=== PATIENT | female | born 1950 | race Two or more races ===

== ENCOUNTER → 2016-12-17 | Outpatient (CLI) | payer BC, OTHER ==
[2016-12-17 12:22] LABS: ABSOLUTE EOSINOPHILS # (AUTO) 0.1 10^3/uL (0.0-0.6); ABSOLUTE LYMPHOCYTES (AUTO) 2.3 10^3/uL (0.5-4.7); ABSOLUTE MONOCYTES (AUTO) 0.6 10^3/uL (0.1-1.4); ABSOLUTE NEUT (AUTO) 2.9 10^3/uL (1.7-8.2); BASOPHILS % (AUTO) 0.6 % (0-2); EOSINOPHILS % (AUTO) 2.4 % (0-6); HEMATOCRIT 38.3 % (36.0-47.0); HGB HCT DIFFERENCE 0.7; LYMPHOCYTES % (AUTO) 38.9 % (13-45); MEAN CORPUSCULAR HEMOGLOBIN 28.2 pg (27.0-33.4); MEAN CORPUSCULAR VOLUME 83 fl (80-97); MONOCYTES % (AUTO) 9.9 % (3-13); RED BLOOD COUNT 4.61 10^6/uL (3.72-5.28); RED CELL DISTRIBUTION WIDTH 14.5 % (11.5-14.0); SEGMENTED NEUTROPHILS % (AUTO) 48.2 % (42-78)
[2016-12-17 12:45] LABS: BLOOD UREA NITROGEN 11 mg/dL (7-20); CALCIUM 9.6 mg/dL (8.4-10.2); CREATININE RESULT 0.52 mg/dL (0.52-1.25); GLUCOSE 97 mg/dL (75-110)
[2016-12-17 12:46] LABS: ANION GAP 13 (5-19); CARBON DIOXIDE 26 mmol/L (22-30); CHLORIDE 104 mmol/L (98-107); POTASSIUM 4.8 mmol/L (3.6-5.0); SODIUM 143.4 mmol/L (137-145)
--- NOTE | 2016-12-17 13:49 | EKG REPORT ---
SEVERITY:- NORMAL ECG - SINUS RHYTHM : Confirmed by: Anup Woods MD 17-Dec-2016 13:48:35
== END ==
LOC: OD 11:15
PROVIDERS: ATTEND Orthopaedic Surgery
DX: Z01.818 Encounter for other preprocedural examination (principal); Z01.810 Encounter for preprocedural cardiovascular examination; E13.8 Other specified diabetes mellitus with unspecified complications
CPT/HCPCS: 36415; 80048; 85025; 93005; 93010

== ENCOUNTER → 2018-11-22 | Outpatient (CLI) | payer MEDICARE, BC ==
--- NOTE | 2018-11-22 10:16 | WOMENS IMAGING REPORT ---
EXAM DESCRIPTION: BILAT SCREENING MAMMO W/CAD COMPLETED DATE/TIME: 11/22/2018 9:00 am REASON FOR STUDY: ROUTINE BILATERAL SCREENING,Z12.31 Z12.31 ENCNTR SCREEN MAMMOGRAM FOR MALIGNANT N EOPLASM OF IRINEO Z78.0 ASYMPTOMATIC MENOPAUSAL STATE COMPARISON: 2013 TECHNIQUE: Standard craniocaudal and mediolateral oblique views of each breast recorded using digita l acquisition. LIMITATIONS: None. FINDINGS: No masses, calcifications or architectural distortion. No areas of suspicion. Read with the assistance of CAD. .[facility] - R2 Cenova Version 1.3 .[facility] - R2 Cenova Version 2.1 .[facility] - R2 Cenova Version 2.4 .[facility] [place] - R2 Cenova Version 2.4 .[facility] - R2 Associate Director Finance Version 9.2 IMPRESSION: NORMAL MAMMOGRAM. BIRADS 1. BREAST DENSITY: b. There are scattered areas of fibroglandular density. BIRAD: 1 NEGATIVE RECOMMENDATION: ROUTINE SCREENING COMMENT: The patient has been notified of the results by letter per MQSA requirements. Additional no tification policies are in place for contacting patient with suspicious or incomplete findings. Quality ID #225: The [employer] recommends an annual screening mammogram for women aged 40 years or over. This facility utilizes a reminder system to ensure that all patients receive reminder letters, and/or direct phone calls for appointments. This includes reminders for routine scr eening mammograms, diagnostic mammograms, or other Breast Imaging Interventions when appropriate. Th is patient will be placed in the appropriate reminder system. The [employer] (ACR) has developed recommendations for screening MRI of the breast s in certain patient populations, to be used in conjunction with mammography. Breast MRI surveillanc e may be appropriate for women with more than 20% lifetime risk of developing breast cancer as deter mined by genetic testing, significant family history of the disease, or history of mantle radiation f or Hodgkins Disease. ACR Practice Guidelines 2008. TECHNICAL DOCUMENTATION: FINDING NUMBER: (1) ASSESSMENT: (1) JOB ID: [id number] [employer]- All Rights Reserved Reading location - IP/workstation name: [email or web address]
--- NOTE | 2018-11-22 10:45 | WOMENS IMAGING REPORT ---
EXAM DESCRIPTION: BONE DENSITY HIP/SPINE COMPLETED DATE/TIME: 11/22/2018 9:00 am REASON FOR STUDY: ROUTINE BILATERAL SCREENING,Z12.31, Z78.0 ASYMPTOMATIC MENOPAUSAL STATE Z12.31 EN CNTR SCREEN MAMMOGRAM FOR MALIGNANT NEOPLASM OF IRINEO Z78.0 ASYMPTOMATIC MENOPAUSAL STATE COMPARISON: 2010 TECHNIQUE: Dual-Energy X-ray Absorptiometry (DEXA) of the AP Spine and Hip. LIMITATIONS: None. FINDINGS: LUMBAR SPINE: The bone mineral density (BMD) measured from L1-L4 in the AP projection correlates with a T-score of -1.3, previously -1.4, which is osteopenia as defined by the World Health Organization. HIP: The bone mineral density (BMD) measured in the left hip correlates with a T-score of -1.8, previously -1.8, which is osteopenia as defined by the World Health Organization. IMPRESSION: 1. LUMBAR SPINE: OSTEOPENIA. 2. HIP: OSTEOPENIA. COMMENT: The World Health Organization defines low BMD as follows: T-score: Normal: Greater than -1.0 Osteopenia: Between -1.0 and -2.5 Osteoporosis: Less than -2.5 without fractures Established osteoporosis: Less than -2.5 with fractures In general, you may wish to consider: Diagnosis Treatment Follow-up DEXA Normal BMD Prevention 2-3 years Osteopenia Prevention/Therapy 1-2 years Osteoporosis Therapy Yearly TECHNICAL DOCUMENTATION: JOB ID: [id number] 3395[employer]- All Rights Reserved Reading location - IP/workstation name: [email or web address]
== END ==
LOC: WI 08:33
PROVIDERS: ATTEND Physician Assistant
DX: Z12.31 Encounter for screening mammogram for malignant neoplasm of breast (principal); M85.88 Other specified disorders of bone density and structure, other site; Z78.0 Asymptomatic menopausal state
CPT/HCPCS: 77067; 77080

== ENCOUNTER 2019-10-18 11:51 | Emergency (ER) | payer OTHER, MEDICARE, BC ==
[2019-10-18 12:00] VITALS: BP 152/87
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
== END 2019-10-18 12:39 | disposition home or self-care (01) ==
LOC: ER 11:51
DX: M25.511 Pain in right shoulder (principal); M54.2 Cervicalgia; V59.50XA Passenger in pick-up truck or van injured in collision with unspecified motor vehicles in traffic accident, initial encounter; I10 Essential (primary) hypertension
CPT/HCPCS: 99283

== ENCOUNTER → 2019-11-23 | Outpatient (CLI) | payer MEDICARE, BC ==
--- NOTE | 2019-11-23 14:53 | WOMENS IMAGING REPORT ---
EXAM DESCRIPTION: BILAT SCREENING MAMMO W/CAD COMPLETED DATE/TIME: 11/23/2019 9:11 am REASON FOR STUDY: Z12.31 SCREENING MAMMO Z12.31 ENCNTR SCREEN MAMMOGRAM FOR MALIGNANT NEOPLASM OF B RE COMPARISON: 11/22/2018 and 12/08/2013. EXAM PARAMETERS: Standard craniocaudal and mediolateral oblique views of each breast recorded using digital acquisition. Read with the assistance of CAD. .[facility] - [employer] Associate Version 9.2 LIMITATIONS: None. FINDINGS: No suspicious masses, suspicious calcifications or architectural distortion. No areas of c oncern. IMPRESSION: Negative MAMMOGRAM. BIRADS 1 BREAST DENSITY: b. There are scattered areas of fibroglandular density. BIRAD: ASSESSMENT: 1 NEGATIVE RECOMMENDATION: ROUTINE SCREENING COMMENT: The patient has been notified of the results by letter per MQSA requirements. Additional no tification policies are in place for contacting patient with suspicious or incomplete findings. Quality ID #225: The [employer] recommends an annual screening mammogram for women aged 40 years or over. This facility utilizes a reminder system to ensure that all patients receive reminder letters, and/or direct phone calls for appointments. This includes reminders for routine scr eening mammograms, diagnostic mammograms, or other Breast Imaging Interventions when appropriate. Th is patient will be placed in the appropriate reminder system. TECHNICAL DOCUMENTATION: FINDING NUMBER: (1) ASSESSMENT: (1) JOB ID: [id number] [employer]- All Rights Reserved Reading location - IP/workstation name: [email or web address]
== END ==
LOC: WI 08:30
PROVIDERS: ATTEND Physician Assistant
DX: Z12.31 Encounter for screening mammogram for malignant neoplasm of breast (principal)
CPT/HCPCS: 77067